=== PATIENT | female | born 1975 | race Two or more races ===

== ENCOUNTER 2018-05-04 09:45 | Observation (INO) | payer OTHER ==
[2018-05-04] VITALS (14 sets, daily range): BP systolic 97–113; BP diastolic 5–72
[~2018-05-04] VITALS: Ht 170.2 cm; Wt 64.9 kg
[2018-05-04] MEDS ORDERED: MULTIVITAMINS1 EAC2 ORAL (10:29)
[2018-05-04] MEDS ORDERED: Ropivacaine 5mg/ml Vial 30ml INJ ONE (10:52)
[2018-05-04] MEDS ORDERED: ProvayBlue 5mg/ml 10ml amp INJ ONE (11:00)
[2018-05-04] MEDS ORDERED: LR 1000ml 1,000 ML IVLG SCH (11:34)
--- NOTE | 2018-05-04 11:39 | Anethesia Preoperative Eval ---
Anesthesia Pre-op PMH/ROS General Date of Evaluation: May 04, 2018 Time of Evaluation: 12:01 Anesthesiologist: Renata ASA Score: ASA 2 Mallampati Score Class I : Soft palate, uvula, fauces, pillars visible Class II: Soft palate, uvula, fauces visible Class III: Soft palate, base of uvula visible Class IV: Only hard plate visible Mallampati Classification: Class I Surgeon: Maksim Diagnosis: Abd Pain Surgical Procedure: Laparoscopic Left Salpingo-Oophorectomy Anesthesia History: none Family History: no anesthesia problems Allergies: Coded Allergies: PENICILLINS (Verified Allergy, Severe, Hives, 05/02/18) Medications: see eMAR Past Medical History Gastrointestinal/Genitourinary: Reports: other - GI Ulcer PSxH Narrative: Cholecystectomy Anesthesia Pre-op Phys. Exam Physician Exam Last Vital Signs Date Time Temp Pulse Resp B/P (MAP) Pulse Ox O2 Delivery O2 Flow Rate FiO2 05/04/18 10:33 97.5 63 20 102/60 (74) 99 97.5 05/04/18 10:30 Room Air Constitutional: NAD Neurologic: CN 2-12 intact Cardiovascular: RRR Respiratory: CTA Gastrointestinal: S/NT/ND Airway Exam Mallampati Score: Class I MO: full ROM: full Teeth: intact Anesthesia Pre-op A/P Labs Urine Test Test 05/04/18 10:00 Urine HCG, Qualitative Negative (NEGATIVE) Risk Assessment & Plan Assessment: ASA 2 Plan: GA Status Change Before Surgery: Yes Pre-Antibiotics Dru Gram Ancef IV Given Within 1 Hr of Incision: Yes Time Given: 12:16 Von Yanez MD May 04, 2018 11:39
--- NOTE | 2018-05-04 11:40 | Immediate Post-Op Evaluation ---
Immediate Post-Op Evalulation Immediate Post-Op Evalulation Procedure: Laparoscopic Left Salpingo-Oophorectomy Date of Evaluation: May 04, 2018 Blood Products: 0 Pain Score (1-10): 2 Nausea: No Vomiting: No Complications 0 Patient Status: awake, reacts, patent, extubated, none Hydration Status: adequate Dru Gram Ancef IV Given Within 1 Hr of Incision: Von Bentley MD May 04, 2018 11:40
[2018-05-04] MEDS ORDERED: Acetaminophen (Non formulary) 100 ML IV ONE (11:45)
[2018-05-04] MEDS ORDERED: oxyCODONE HCL/Acetaminophen 5/325mg ORAL PRN (11:45)
[2018-05-04] MEDS ORDERED: DiphenhydrAMINE 50mg/ml Inj IVP PRN ×2 (11:45→12:30)
[2018-05-04] MEDS ORDERED: Meperidine 50mg/ml Inj(FOR RIGORS ONLY) IVP PRN (11:45)
[2018-05-04] MEDS ORDERED: Metoclopramide 10mg/2ml Inj IVP PRN ×2 (11:45→12:30)
[2018-05-04] MEDS ORDERED: fentaNYL 100 mcg/2 mL IV PRN (11:45)
[2018-05-04] MEDS ORDERED: Midazolam 2mg/2ml Inj IVP PRN (11:45)
[2018-05-04] MEDS ORDERED: HYDROcodone/Acetamin 7.5/325 tab ORAL PRN (11:45)
[2018-05-04] MEDS ORDERED: LORazepam Inj 2mg/ml 1ml IV PRN (11:45)
[2018-05-04] MEDS ORDERED: Norco 5mg/325mg tab ORAL PRN ×2 (11:45→12:30)
[2018-05-04] MEDS ORDERED: Atropine Sulfate 0.4mg/ml inj IVP PRN (11:45)
[2018-05-04] MEDS ORDERED: Labetalol 5mg/ml 20ml vial IV PRN (11:45)
[2018-05-04] MEDS ORDERED: Hydromorphone 0.5mg/0.5ml inj IVP PRN (11:45)
[2018-05-04] MEDS ORDERED: Ketorolac 30mg Inj IV PRN ×2 (11:45)
[2018-05-04] MEDS ORDERED: Lidocaine 1% MPF 10mg/ml 5ml ONE (11:46)
[2018-05-04] MEDS ORDERED: Sodium Chloride 10ml vial INJ ONE (11:46)
[2018-05-04] MEDS ORDERED: Dexamethasone 4mg/ml vial ONE (11:46)
[2018-05-04] MEDS ORDERED: fentaNYL 100 mcg/2 mL IV ONE ×2 (11:48→14:48)
[2018-05-04] MEDS ORDERED: Neostigmine 1mg/ml 10ml Inj ONE (12:00)
[2018-05-04] MEDS ORDERED: LR 1000ml ONE (12:00)
--- NOTE | 2018-05-04 12:19 | Pre-Procedure Note/Attestation ---
Pre-Procedure Note/Attestation Complete Prior to Procedure Planned Procedure: not applicable Procedure Narrative: Diagnostic laparoscopy/ salpinogoopherectomy of most likely left ovary/ hysteroscopy, dilation and curettage, possible laparotomy Indications for Procedure Pre-Operative Diagnosis: large complex pelvic mass - most likely of left ovarian origin Attestation I attest that I discussed the nature of the procedure; its benefits; risks and complications; and alternatives (and the risks and benefits of such alternatives ), prior to the procedure, with the patient (or the patient's legal in store marketing representative). I attest that, if there was a reasonable possibility of needing a blood transfusion, the patient (or the patient's legal in store marketing representative) was given the [place] Department [employer] Services standardized written summary, pursuant to the [place] Blood Safety Act ([place] Health and Safety Code # 1645, as amended). I attest that I re-evaluated the patient just prior to the surgery and that there has been no change in the patient's H&P, except as documented below: Payal Schaeffer MD May 04, 2018 12:19
[2018-05-04] MEDS ORDERED: Ketorolac 30mg Inj IM PRN (12:30)
[2018-05-04] MEDS ORDERED: HYDROmorphone 1mg/ml Carpuject IVP PRN (12:30)
[2018-05-04] MEDS ORDERED: HYDROcodone/Acetamin 10/325 tab ORAL PRN (12:30)
[2018-05-04] MEDS ORDERED: NS Irrig 1000ml IRRIG ONE (12:53)
--- NOTE | 2018-05-04 13:11 | Immediate Post-Op Evaluation ---
Immediate Post-Op Evalulation Immediate Post-Op Evalulation Procedure: Laparoscopic Left Salpingo-Oophorectomy Date of Evaluation: May 04, 2018 Time of Evaluation: 15:38 IV Fluids: 1000 LR Blood Products: 0 Estimated Blood Loss: 50 Urinary Output: 300 Blood Pressure Systolic: 97 Blood Pressure Diastolic: 60 Pulse Rate: 72 Respiratory Rate: 16 O2 Sat by Pulse Oximetry: 100 Temperature (Fahrenheit): 98.2 Pain Score (1-10): 2 Nausea: No Vomiting: No Complications 0 Patient Status: awake, reacts, patent, extubated, none Hydration Status: adequate Dru Gram Ancef IV Given Within 1 Hr of Incision: Yes Time Given: 12:16 Von Yanez MD May 04, 2018 13:11
[2018-05-04] MEDS ORDERED: Glycopyrrolate 0.2mg/ml 1ml Vial ONE (14:23)
[2018-05-04] MEDS: Docusate 100mg cap ORAL SCH (18:16)
[2018-05-04] MEDS: D5 1/2NS w/KCl 20mEq 1,000 ML IV SCH (18:16)
[2018-05-04 22:16] LABS: HEMOGLOBIN 11.2 G/DL (12.0-16.0); MEAN CORPUSCULAR VOLUME 95 FL (80-99); PLATELET COUNT 221 K/UL (150-450); RED BLOOD COUNT 3.36 M/UL (4.20-5.40); WHITE BLOOD COUNT 12.4 K/UL (4.8-10.8)
[2018-05-05] VITALS: BP 98/58
[2018-05-05] MEDS: Ketorolac 30mg Inj IM SCH ×3 (00:41→14:26)
[2018-05-05] MEDS: D5 1/2NS w/KCl 20mEq 1,000 ML IV SCH ×2 (01:18→09:07)
[2018-05-05 04:00] VITALS: BP 99/53
[2018-05-05 06:04] LABS: BASOPHILS % (AUTO) 0.4 % (0.0-2.0); HEMATOCRIT 31.4 % (37.0-47.0); HEMOGLOBIN 10.7 G/DL (12.0-16.0); LYMPHOCYTES % (AUTO) 13.3 % (20.0-45.0); MEAN CORPUSCULAR VOLUME 95 FL (80-99); MONOCYTES % (AUTO) 6.2 % (1.0-10.0); NEUTROPHILS % (AUTO) 80.1 % (45.0-75.0); PLATELET COUNT 192 K/UL (150-450); RED CELL DISTRIBUTION WIDTH 10.7 % (11.6-14.8); WHITE BLOOD COUNT 9.7 K/UL (4.8-10.8)
[2018-05-05 06:25] LABS: ANION GAP 4 mmol/L (5-15); BLOOD UREA NITROGEN 9 mg/dL (7-18); CALCIUM 7.8 MG/DL (8.5-10.1); CARBON DIOXIDE 29 MMOL/L (21-32); CHLORIDE 107 MMOL/L (98-107); CREATININE 0.6 MG/DL (0.55-1.30); POTASSIUM 3.9 MMOL/L (3.5-5.1); SODIUM 140 MMOL/L (136-145)
[2018-05-05 08:00] VITALS: BP 97/59
--- NOTE | 2018-05-05 08:00 | 48 Hour Post Anesthesia Eval ---
Post Anesthesia Evaluation Procedure: Laparoscopic Left Salpingo-Oophorectomy Date of Evaluation: May 05, 2018 Time of Evaluation: 06:40 Blood Pressure Systolic: 99 0: 53 Pulse Rate: 69 Respiratory Rate: 18 Temperature (Fahrenheit): 98.1 O2 Sat by Pulse Oximetry: 100 Airway: patent Nausea: No Vomiting: No Pain Intensity: 2 Hydration Status: adequate Cardiopulmonary Status: at baseline Mental Status/LOC: patient returned to baseline Post-Anesthesia Complications: 0 Follow-up care needed: N/A - further care as per primary team Laurence Stevenson MD May 05, 2018 08:00
--- NOTE | 2018-05-05 08:22 | Brief Operative Note ---
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
--- NOTE | 2018-05-05 08:24 | General Surgery Progress Note ---
General Surgery-Progress Note Subjective Procedure Performed diagnostic laparoscopy, left salpingoopherectomy, explarotory laparotomy Symptoms: improved, tolerating diet, passing flatus Objective Last 24 Hour Vital Signs Date Time Temp Pulse Resp B/P (MAP) Pulse Ox O2 Delivery O2 Flow Rate FiO2 05/05/18 08:00 208.6 69 18 100 05/05/18 04:00 98.1 69 18 99/53 (68) 100 98.1 05/05/18 00:00 99.0 79 18 98/58 (71) 98 99.0 05/04/18 21:00 Nasal Cannula 1.0 05/04/18 20:00 98.4 80 18 99/63 (75) 99 98.4 98/62 (74) 05/04/18 18:00 99.0 86 20 111/72 (85) 100 99.0 05/04/18 17:45 98.0 77 18 105/65 (78) 100 98.0 05/04/18 17:30 98.2 81 16 102/63 (76) 100 98.2 05/04/18 17:25 Nasal Cannula 1.0 05/04/18 17:15 98.0 78 16 108/67 (81) 100 98.0 05/04/18 16:48 74 16 100/69 100 Nasal Cannula 3 05/04/18 16:35 79 16 99/70 100 Nasal Cannula 3 05/04/18 16:29 72 16 107/70 100 Nasal Cannula 3 05/04/18 16:15 71 16 113/69 100 Simple Mask 8 05/04/18 16:00 74 16 104/64 100 Simple Mask 8 05/04/18 15:47 74 16 100/61 100 Simple Mask 8 05/04/18 15:42 72 16 100/61 100 Simple Mask 8 05/04/18 15:37 98.2 72 16 97/60 100 Simple Mask 8 98.2 05/04/18 15:37 208.8 72 16 100 05/04/18 10:33 97.5 63 20 102/60 (74) 99 97.5 05/04/18 10:30 Room Air I&O Intake and Output 05/04/18 05/05/18 19:00 07:00 Intake Total 1500 ml 1500 ml Output Total 550 ml 1600 ml Balance 950 ml -100 ml Intake IV Total 1500 ml 1500 ml Output Urine Total 500 ml 1600 ml Estimated Blood Loss 50 ml Dressing: dry, bloody Wound: clean, dry Drains: none Cardiovascular: RSR Respiratory: clear Abdomen: soft, non-tender, present bowel sounds Extremities: no edema, no tenderness, no cyanosis Laboratory Tests Test 05/04/18 10:00 05/04/18 21:45 05/05/18 05:05 Urine HCG, Qualitative Negative (NEGATIVE) White Blood Count 12.4 K/UL (4.8-10.8) H 9.7 K/UL (4.8-10.8) Red Blood Count 3.36 M/UL (4.20-5.40) L 3.30 M/UL (4.20-5.40) L Hemoglobin 11.2 G/DL (12.0-16.0) L 10.7 G/DL (12.0-16.0) L Hematocrit 32.0 % (37.0-47.0) L 31.4 % (37.0-47.0) L Mean Corpuscular Volume 95 FL (80-99) 95 FL (80-99) Mean Corpuscular Hemoglobin 33.3 PG (27.0-31.0) H 32.4 PG (27.0-31.0) H Mean Corpuscular Hemoglobin Concent 35.1 G/DL (32.0-36.0) 34.0 G/DL (32.0-36.0) Red Cell Distribution Width 11.0 % (11.6-14.8) L 10.7 % (11.6-14.8) L Platelet Count 221 K/UL (150-450) 192 K/UL (150-450) Mean Platelet Volume 6.5 FL (6.5-10.1) 7.0 FL (6.5-10.1) Neutrophils (%) (Auto) % (45.0-75.0) 80.1 % (45.0-75.0) H Lymphocytes (%) (Auto) % (20.0-45.0) 13.3 % (20.0-45.0) L Monocytes (%) (Auto) % (1.0-10.0) 6.2 % (1.0-10.0) Eosinophils (%) (Auto) % (0.0-3.0) 0.0 % (0.0-3.0) Basophils (%) (Auto) % (0.0-2.0) 0.4 % (0.0-2.0) Differential Total Cells Counted 100 Neutrophils % (Manual) 88 % (45-75) H Lymphocytes % (Manual) 5 % (20-45) L Monocytes % (Manual) 7 % (1-10) Eosinophils % (Manual) 0 % (0-3) Basophils % (Manual) 0 % (0-2) Band Neutrophils 0 % (0-8) Platelet Estimate Adequate Platelet Morphology Normal Red Blood Cell Morphology Normal Sodium Level 140 MMOL/L (136-145) Potassium Level 3.9 MMOL/L (3.5-5.1) Chloride Level 107 MMOL/L (98-107) Carbon Dioxide Level 29 MMOL/L (21-32) Anion Gap 4 mmol/L (5-15) L Blood Urea Nitrogen 9 mg/dL (7-18) Creatinine 0.6 MG/DL (0.55-1.30) Estimat Glomerular Filtration Rate > 60 mL/min (>60) Glucose Level 124 MG/DL (74-106) H Calcium Level 7.8 MG/DL (8.5-10.1) L Assessment Post-op Diagnosis 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
--- NOTE | 2018-05-05 08:45 | Discharge Summary ---
Discharge Summary Hospital Course Date of Admission May 04, 2018 at 15:18 Date of Discharge may 05, 2018 Admitting Diagnosis large left ovarian mass HPI Andres Giullermo is a 42 year old female who was admitted on May 04, 2018 at 15: 18 for Left Ovarian Mass Procedures laparascopy, explarotory laparotomy 14 cm mass removal Hospital Course able to void , ambulate Discharge Condition Upon Discharge: stable Discharge Disposition Patient was discharged to home Payal Schaeffer MD May 05, 2018 08:45
[2018-05-05] MEDS: Docusate 100mg cap ORAL SCH (09:06)
--- NOTE | 2018-05-05 11:00 | Operative Note - Dictated ---
DATE OF OPERATION: 05/05/2018 PREOPERATIVE DIAGNOSIS: Large left complex ovarian mass. 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 SURGEON: Payal Schaeffer M.D. PASTRY WRAPPER: Denisse Briggs M.D. ANESTHESIOLOGIST: Von Yanez M.D. ANESTHESIA: General endotracheal. ESTIMATED BLOOD LOSS: 100 mL. COMPLICATIONS: None. FINDINGS: A 14 cm complex left ovarian mass. Some adhesions between liver and upper abdomen, post cholecystectomy. PROCEDURE IN DETAIL: After ensuring informed consent, the patient was taken to the operating room, where general anesthesia was induced. The patient was sterilely prepped and draped. A speculum was dilated to an 8 Hegar dilator. Hysteroscope was placed inside the uterine cavity. Uterine cavity was distended with normal saline. They were no uterine lesions observed. Hysteroscope was taken out and a uterine HUMI-type manipulator was placed inside the uterus. Attention was turned to the abdomen where umbilicus was infiltrated with Naropin. A small incision was made and a Veress needle was placed inside the peritoneal cavity. Intraperitoneal placement was confirmed with low opening pressures. A 5 mm trocar was placed inside the peritoneal cavity and intraperitoneal placement was confirmed with the camera. Left lateral 5 mm incision was made and 5 mm trocar was placed under direct visualization. Now, pelvis was explored, a large mass was observed in the posterior cul-de-sac, which was mostly solid and has some cystic components as well. The capsule of the mass was smooth. There were no excrescences. The right ovary and tube were within normal limits. Uterus was within normal limits. Bowel and omentum in the upper abdomen appeared normal except for some adhesions between the surgical bed were gallbladder was removed in the upper abdomen. A suprapubic incision was made after infiltration with local meropenem and a 10 mm port was introduced. The left mass was partially retroperitoneal. Infundibulopelvic was grasped with cautery, cauterized and transected. The retroperitoneum was entered so that the infundibulopelvic pedicle could be better identified. Utero-ovarian was grasped, cauterized, and transected. Resection was continued along the broad ligament until the whole mass was freed and amputated. The mass was mostly solid. Using the 10 mm port, the endobag was introduced, however, we could not place the mass into the bag because it was large, so it was about 14 cm. It was more cylindrical than round with 14 cm in the greatest dimension and approximately 8 to 9 cm in the more narrow dimension. We attempted to place the narrower dimension inside the bag however we were unsuccessful. We introduced the right lateral port to assist us in placement, again unsuccessful. Minilaparotomy was made about 6 cm. The skin was cut. The Bovie was used to cut the subcutaneous tissue and fascia. The fascia was tented up and resected from the underlying rectus muscles. Rectus muscles were spread in the midline. Peritoneum was entered and spread. Mass was identified and pulled up through the incision. The left lateral port was enlarged to allow for the endobag. The endobag was placed underneath the mass is still. This cystic area was punctured with a needle and approximately 30 to 40 mL of fluid was removed. This was while the mass was in the incision. Another pocket of fluid was likewise emptied until more of the mass could be brought to the outside. At this point, the mass was marsupialized to allow for complete removal through the smaller incision. Mass was sent for frozen. Frozen came back with benign mass most likely teratoma. Once the mass was removed, the bag was closed and also removed. The pelvis was irrigated with 4 liters of normal saline. Excellent hemostasis was assured along the broad ureter was easily visualized peristalsing. All trocars were removed under direct visualization. The minilaparotomy incision fascia was closed with #0 Vicryl. Subcutaneous tissue was closed with 3-0 plain and the skin was closed with 4-0 Monocryl and Steri-Strips. Steri-Strips were placed over a 5 mm port namely umbilicus and right lateral and left lateral port was closed with #0 Vicryl and the fascia and Steri-Strips for skin. At the end of the procedure, all instrument and lap counts were correct x2. HUMI manipulator was removed from the uterus and Simmons was left until the following morning. The patient was taken to the recovery area in stable condition and extubated. Payal Schaeffer M.D. DR: SHERI JOB#: [id number] CC:
[2018-05-05 12:00] VITALS: BP 93/56
[2018-05-05] MEDS ORDERED: IBUPROFEN600 MG ORAL (14:18)
[2018-05-05] MEDS ORDERED: NORCO 5-325 TA1 EACH ORAL (14:18)
== END 2018-05-05 16:10 | disposition home or self-care (01) ==
LOC: SUR 09:45 → 4E 15:18
DX: N83.9 Noninflammatory disorder of ovary, fallopian tube and broad ligament, unspecified (principal); Z53.31 Laparoscopic surgical procedure converted to open procedure; D27.1 Benign neoplasm of left ovary; Z90.49 Acquired absence of other specified parts of digestive tract; Z88.0 Allergy status to penicillin
CPT/HCPCS: 36415; 58661; 58999; 80048; 81025; 85007; 85025; 88104; 96360; 96361; 96372; 96374; 96375; G0378; J0690; J1100; J1885; J2250; J2405; J2710; J2765; J2795; J3010; 94003; 94150